=== PATIENT | female | born 2000 | race Caucasian/White ===

== ENCOUNTER 2023-11-23 08:51 | Emergency (ER) | payer MEDICAID ==
[~2023-11-23] VITALS: Ht 160 cm; Wt 77.1 kg
[2023-11-23 08:59] VITALS: BP 114/99; PULSE 85; RESP 18; TEMP 98.3; O2SAT 98
[2023-11-23 09:21] VITALS: TEMP 98.9
[2023-11-23] MEDS: KETOROLAC 30 MG/ML VIAL IM ONE (09:55)
[2023-11-23] MEDS ORDERED: NAPR-54 PO (11:04)
[2023-11-23] MEDS ORDERED: CYCL-711 PO (11:04)
[2023-11-23 11:14] VITALS: BP 101/54; PULSE 80; RESP 16; O2SAT 97
== END 2023-11-23 11:14 | disposition home or self-care (01) ==
LOC: MED 08:51
DX: S16.1XXA Strain of muscle, fascia and tendon at neck level, initial encounter (principal); M54.50 Low back pain, unspecified; Z98.890 Other specified postprocedural states; V89.2XXA Person injured in unspecified motor-vehicle accident, traffic, initial encounter; Y93.89 Activity, other specified; Y92.410 Unspecified street and highway as the place of occurrence of the external cause; Y99.8 Other external cause status
CPT/HCPCS: 71045; 72040; 72100; 81002; 81025; 96372; 99284; J1885